=== PATIENT | female | born 1980 | race Caucasian/White ===

== ENCOUNTER 2019-02-11 13:23 | Outpatient (CLI) | payer OTHER ==
[~2019-02-11] VITALS: Ht 147.3 cm; Wt 84.0 kg
[~2019-02-11 13:23] MED LIST: FERR256T PO; PNV11TAB PO
[2019-02-11 14:05] VITALS: BP 109/61; PULSE 74; RESP 18
[2019-02-11] MEDS ORDERED: LACTATED RINGER'S 1,000 ML IV SCH ×2 (14:16→14:30)
[2019-02-11] MEDS ORDERED: TERBUTALINE 1 MG/ML INJ SC STA (14:16)
[2019-02-11] MEDS ORDERED: CEFTRIAXONE 1 GM/50 ML (PMX) 50 ML IVPB STA (16:43)
[2019-02-11] MEDS ORDERED: SOD CHLORIDE 0.9% 1,000 ML IV ONE (16:45)
[2019-02-11] MEDS ORDERED: SOD CHLORIDE 0.9% 1,000 ML IV SCH (17:00)
== END 2019-02-11 18:15 | disposition home or self-care (01) ==
LOC: L-D 13:23 → OBT 13:23
PROVIDERS: ATTEND Obstetrics & Gynecology
DX: O62.9 Abnormality of forces of labor, unspecified (principal); Z3A.26 26 weeks gestation of pregnancy
CPT/HCPCS: 36415; 76817; 76818; 81001; 82731; 85025; 87086; 96360; 96367; 96372; J0696; J3105; J7030; J7120; Z7500; G0463